=== PATIENT | male | born 1960 ===

== ENCOUNTER 2020-11-16 04:15 | Day surgery (SDC) | payer OTHER ==
[2020-11-15 11:28] VITALS: BMI 28.4
[2020-11-16] MEDS ORDERED: ceFAZolin SODIUM 1 GM VIAL IVPB ONE (10:41)
[2020-11-16] MEDS ORDERED: PROMETHAZINE HCL 25 MG/1 ML VIAL IVPUSH PRN (12:07)
[2020-11-16] MEDS ORDERED: ONDANSETRON 4 MG/2 ML VIAL IVPUSH PRN (12:07)
[2020-11-16] MEDS ORDERED: oxyCODONE HCL 5 MG TABLET PO PRN (12:07)
[2020-11-16] MEDS ORDERED: oxyCODONE HCL 5 MG TABLET PO ONE (13:15)
[2020-11-16] MEDS ORDERED: oxyCODONE HCL 5 MG TABLET ONE ×2 (13:17→13:44)
[2020-11-16 15:00] VITALS: BP 150/78; PULSE 62; TEMP 98
== END 2020-11-16 14:30 ==
LOC: JASU-SURG 04:15
PROVIDERS: ATTEND Urology
PROC: 0V503ZZ Destruction of Prostate, Percutaneous Approach (ICD-10-PCS; principal; 2020-11-16 10:00)
DX: C61 Malignant neoplasm of prostate (principal)
CPT/HCPCS: 55873; C2618; 82962; 94760